=== PATIENT | female | born 1995 | race Caucasian/White ===

== ENCOUNTER 2019-01-23 09:23 | Emergency (ER) | payer OTHER ==
--- NOTE | 2019-01-23 09:50 | ER Document Report ---
ED Medical Screen (RME) - General Chief Complaint: Abdominal Pain Stated Complaint: CHEST PAIN Time Seen by Provider: 01/23/19 09:49 Primary Care Provider: KATE JOLLEY MD [Primary Care Provider] - Follow up as needed Mode of Arrival: Ambulatory Information source: Patient Notes: Patient is an otherwise healthy 23-year-old female presented to the emergency de partment chief complaint of upper abdominal pain with vomiting. Patient reports vomited several times yesterday but vomiting has resolved today. Denies any chills or fever. Denies any dysuria or urinary frequency. Patient has not had any abdominal surgeries. Exam: Tenderness to palpation to epigastric area. I have greeted and performed a rapid initial assessment of this patient. A comprehensive ED assessment and evaluation of the patient, analysis of test results and completion of the medical decision making process will be conducted by additional ED providers. I have specifically instructed the patient or family members with the patient to immediately return to any nursing staff should anything change in the patient's condition or with their chief complaint. This medical record was dictated with voice recognizing software. There may be grammatical, syntax errors that are unintended. TRAVEL OUTSIDE OF THE [place] IN LAST 30 DAYS: No - Related Data Allergies/Adverse Reactions: erythromycin base Allergy (Verified 01/23/19 09:31) sulfamethoxazole [From Septra] Allergy (Verified 01/23/19 09:31) trimethoprim [From Marra] Allergy (Verified 01/23/19 09:31) Past Medical History Past Surgical History: Reports: Hx Section, Hx Cholecystectomy Physical Exam - Vital signs Vitals: Temp Pulse Resp BP Pulse Ox 97.5 F 83 18 144/77 H 97 01/23/19 09:36 01/23/19 09:36 01/23/19 09:36 01/23/19 09:36 01/23/19 09:36 Course - Vital Signs Vital signs: Temp Pulse Resp BP Pulse Ox 97.5 F 83 18 144/77 H 97 01/23/19 09:36 01/23/19 09:36 01/23/19 09:36 01/23/19 09:36 01/23/19 09:36 Doctor's Discharge - Discharge Referrals: KATE JOLLEY MD [Primary Care Provider] - Follow up as needed
[2019-01-23 10:21] LABS: ABSOLUTE EOSINOPHILS # (AUTO) 0.1 10^3/uL (0.0-0.6); ABSOLUTE LYMPHOCYTES (AUTO) 2.2 10^3/uL (0.5-4.7); ABSOLUTE MONOCYTES (AUTO) 0.5 10^3/uL (0.1-1.4); ABSOLUTE NEUT (AUTO) 6.7 10^3/uL (1.7-8.2); BASOPHILS % (AUTO) 0.5 % (0-2); EOSINOPHILS % (AUTO) 0.9 % (0-6); HEMATOCRIT 41.5 % (36.0-47.0); HEMOGLOBIN 14.1 g/dL (12.0-15.5); LYMPHOCYTES % (AUTO) 22.8 % (13-45); MEAN CORPUSCULAR HEMOGLOBIN 29.8 pg (27.0-33.4); MEAN CORPUSCULAR VOLUME 88 fl (80-97); MONOCYTES % (AUTO) 5.2 % (3-13); PLATELET COUNT 359 10^3/uL (150-450); RED BLOOD COUNT 4.73 10^6/uL (3.72-5.28); RED CELL DISTRIBUTION WIDTH 12.9 % (11.5-14.0); SEGMENTED NEUTROPHILS % (AUTO) 70.6 % (42-78); TOTAL CELLS COUNTED % (AUTO) 100 %; WHITE BLOOD COUNT 9.5 10^3/uL (4.0-10.5)
[2019-01-23 10:22] LABS: APPEARANCE,URINE CLEAR; BILIRUBIN,URINE NEGATIVE (NEGATIVE); COLOR,URINE AMBER; GLUCOSE, URINE NEGATIVE (NEGATIVE); KETONES,URINE NEGATIVE (NEGATIVE); LEUKOCYTE ESTERASE,URINE NEGATIVE (NEGATIVE); NITRITE,URINE NEGATIVE (NEGATIVE); PROTEIN,URINE NEGATIVE (NEGATIVE); URINE SPECIFIC GRAVITY 1.032
[2019-01-23] MEDS ORDERED: METOCLOPRAMIDE HCL ORAL SOLN 10 MG/10 ML UDCUP PO ONE (10:48)
[2019-01-23] MEDS ORDERED: MAG HYDROX/AL HYDROX/SIMETH SUSP 30 ML UDCUP PO ONE (10:48)
[2019-01-23] MEDS ORDERED: LIDOCAINE 2% VISCOUS SOLN 20 ML UDCUP PO ONE (10:48)
[2019-01-23 10:50] LABS: ALANINE AMINOTRANSFERASE 98 U/L (9-52); ALBUMIN 4.6 g/dL (3.5-5.0); ALKALINE PHOSPHATASE 92 U/L (38-126); ANION GAP 8 (5-19); ASPARTATE AMINO TRANSFERASE 167 U/L (14-36); BILIRUBIN,DIRECT 0.6 mg/dL (0.0-0.4); BILIRUBIN,TOTAL 0.9 mg/dL (0.2-1.3); BLOOD UREA NITROGEN 10 mg/dL (7-20); CALCIUM 10.1 mg/dL (8.4-10.2); CARBON DIOXIDE 31 mmol/L (22-30); CHLORIDE 101 mmol/L (98-107); GLUCOSE 91 mg/dL (75-110); LIPASE 122.3 U/L (23-300); POTASSIUM 4.2 mmol/L (3.6-5.0); SODIUM 140.4 mmol/L (137-145); TOTAL PROTEIN 7.8 g/dL (6.3-8.2)
--- NOTE | 2019-01-23 10:56 | ER Document Report ---
ED General - General Chief Complaint: Abdominal Pain Stated Complaint: CHEST PAIN Time Seen by Provider: 01/23/19 09:49 Primary Care Provider: KATE JOLLEY MD [PEDIATRICS] - Follow up as needed Mode of Arrival: Ambulatory Information source: Patient, [facility] Records Notes: 23-year-old female with no significant medical history presents with complaint of epigastric abdominal pain, chest pain and vomiting. Patient states that she began having aching chest pain yesterday that was intermittent and associated with one episode of vomiting. She states this self resolved but then returned again this morning. Patient denies any fever, chills, recent illness, cough, shortness of breath, lower abdominal pain, dysuria, hematuria, vaginal discharge. TRAVEL OUTSIDE OF THE [place] IN LAST 30 DAYS: No - HPI Onset: Yesterday Onset/Duration: Sudden, Intermittent, Better Quality of pain: Achy Severity: Mild Associated symptoms: Chest pain, Nausea, Vomiting Exacerbated by: Denies Relieved by: Denies Similar symptoms previously: Yes Recently seen / treated by doctor: No - Related Data Allergies/Adverse Reactions: erythromycin base Allergy (Verified 01/23/19 09:31) sulfamethoxazole [From Septra] Allergy (Verified 01/23/19 09:31) trimethoprim [From Septra] Allergy (Verified 01/23/19 09:31) Past Medical History - General Information source: Patient - Social History Smoking Status: Never Smoker Chew tobacco use (# tins/day): No Frequency of alcohol use: Occasional Drug Abuse: None Lives with: Family Family History: Reviewed & Not Pertinent Patient has suicidal ideation: No Patient has homicidal ideation: No - Medical History Medical History: Negative Renal/ Medical History: Denies: Hx Peritoneal Dialysis Past Surgical History: Reports: Hx Section, Hx Cholecystectomy Review of Systems - Review of Systems Constitutional: denies: Fever, Recent illness EENT: denies: Throat pain Cardiovascular: Chest pain. denies: Palpitations, Heart racing, Dizziness, Lightheaded Respiratory: denies: Cough, Short of breath Gastrointestinal: Abdominal pain, Vomiting Genitourinary: denies: Dysuria, Flank pain Female Genitourinary: denies: Vaginal discharge Musculoskeletal: denies: Back pain Skin: denies: Rash Hematologic/Lymphatic: No symptoms reported Neurological/Psychological: denies: Headaches -: Yes All other systems reviewed and negative Physical Exam - Vital signs Vitals: Temp Pulse Resp BP Pulse Ox 97.5 F 83 18 144/77 H 97 01/23/19 09:36 01/23/19 09:36 01/23/19 09:36 01/23/19 09:36 01/23/19 09:36 - Notes Notes: PHYSICAL EXAMINATION: GENERAL: Well-appearing, well-nourished and in no acute distress. HEAD: Atraumatic, normocephalic. EYES: Pupils equal round and reactive to light, extraocular movements intact, conjunctiva are normal. ENT: Nares patent, oropharynx clear without exudates. Moist mucous membranes. NECK: Normal range of motion, supple without lymphadenopathy LUNGS: Breath sounds clear to auscultation bilaterally and equal. No wheezes rales or rhonchi. HEART: Regular rate and rhythm without murmurs ABDOMEN: Soft, nontender, nondistended abdomen. No guarding, no rebound. No masses appreciated. Female : deferred Musculoskeletal: Normal range of motion, no pitting or edema. No cyanosis. NEUROLOGICAL: Cranial nerves grossly intact. Normal speech, normal gait. Normal sensory, motor exams PSYCH: Normal mood, normal affect. SKIN: Warm, Dry, normal turgor, no rashes or lesions noted. Course - Re-evaluation Re-evalutation: 01/23/19 13:47 Laboratory 01/23/19 01/23/19 01/23/19 10:00 10:00 10:00 WBC 9.5 RBC 4.73 Hgb 14.1 Hct 41.5 MCV 88 MCH 29.8 MCHC 34.0 RDW 12.9 Plt Count 359 Seg Neutrophils % 70.6 Lymphocytes % 22.8 Monocytes % 5.2 Eosinophils % 0.9 Basophils % 0.5 Absolute Neutrophils 6.7 Absolute Lymphocytes 2.2 Absolute Monocytes 0.5 Absolute Eosinophils 0.1 Absolute Basophils 0.0 Sodium 140.4 Potassium 4.2 Chloride 101 Carbon Dioxide 31 H Anion Gap 8 BUN 10 Creatinine 0.74 Est GFR ( Amer) > 60 Est GFR (Non-Af Amer) > 60 Glucose 91 Calcium 10.1 Total Bilirubin 0.9 Direct Bilirubin 0.6 H Neonat Total Bilirubin Not Reportable Neonat Direct Bilirubin Not Reportable Neonat Indirect Bili Not Reportable AST 167 H ALT 98 H Alkaline Phosphatase 92 Total Protein 7.8 Albumin 4.6 Lipase 122.3 Urine Color NIALL Urine Appearance CLEAR Urine pH 6.0 Ur Specific [place] 1.032 Urine Protein NEGATIVE Urine Glucose (UA) NEGATIVE Urine Ketones NEGATIVE Urine Blood NEGATIVE Urine Nitrite NEGATIVE Urine Bilirubin NEGATIVE Urine Urobilinogen 2.0 H Ur Leukocyte Esterase NEGATIVE Urine WBC (Auto) 2 Urine RBC (Auto) 1 Squamous Epi Cells Auto 3 Urine Mucus (Auto) RARE Urine Ascorbic Acid 40 H Urine HCG, Qual NEGATIVE Abdomen Ultrasound 01/23/19 10:49 IMPRESSION: 1. Cholelithiasis. 2. Fatty liver. Chest X-Ray 01/23/19 10:49 IMPRESSION: NO ACUTE RADIOGRAPHIC FINDING IN THE CHEST. Temp Pulse Resp BP Pulse Ox 98.2 F 79 18 126/69 H 99 01/23/19 13:13 01/23/19 13:13 01/23/19 13:13 01/23/19 13:13 01/23/19 13:13 Patient presents clinical history and exam most consistent with symptomatic cholelithiasis. Patient has had progressive worsening epigastric pain worsened by eating but has been able to tolerate oral intake. Vitals at time of arrival and on multiple reassessments remain non-concerning. Laboratories do not demonstrate a significant leukocytosis, LFT derangements, elevated bilirubin, alkaline phosphatase, or an elevated lipase. A right upper quadrant ultrasound does not demonstrate evidence of acute cholecystitis. T Patient is able to tolerate oral intake.At this time will discharge with return precautions and follow-up recommendations. Verbal discharge instructions given a the bedside and opportunity for questions given. Medication warnings reviewed. Patient is in agreement with this plan and has verbalized understanding of return precautions and the need for primary care follow-up in the next 24-72 hours. Patient was provided copies of her ultrasound and lab work that was performed today. Patient was evaluated and treated as appropriate for the patient's presenting symptoms and complaint, with consideration of any critical or life threatening conditions that may be associated with their obtained history and exam as noted above. All results were discussed with patient and her mother who is at the bedside patient provided the opportunity to ask questions, and express concerns. Patient was educated on treatments based on their presumed diagnosis as noted above. At this time we will discharge the patient with return precautions and follow-up recommendations. Verbal discharge instructions given a the bedside. Medication warnings reviewed. Patient is in agreement with this plan and has verbalized understanding of return precautions. After careful consideration I feel that that patient can be safely discharged from the emergency department, they were advised to followup with a primary care physician in 2-3 days. Dictation on this chart was performed using voice recognition software and may result in unintended grammatical, spelling, syntax or errors. - Vital Signs Vital signs: Temp Pulse Resp BP Pulse Ox 98.2 F 79 18 126/69 H 99 01/23/19 13:13 01/23/19 13:13 01/23/19 13:13 01/23/19 13:13 01/23/19 13:13 - Laboratory Result Diagrams: 01/23/19 10:00 01/23/19 10:00 Laboratory results interpreted by me: 01/23/19 01/23/19 10:00 10:00 Carbon Dioxide 31 H Direct Bilirubin 0.6 H AST 167 H ALT 98 H Urine Urobilinogen 2.0 H Urine Ascorbic Acid 40 H - EKG Interpretation by Me EKG shows normal: Sinus rhythm Rate: Normal Rhythm: NSR When compared to previous EKG there are: Previous EKG unavailable Discharge - Discharge Clinical Impression: Epigastric abdominal pain, Reflux esophagitis Gallstone Qualifiers: Cholecystitis presence: without cholecystitis Biliary obstruction: without biliary obstruction Qualified Code(s): K80.20 - Calculus of gallbladder without cholecystitis without obstruction Condition: Good Disposition: HOME, SELF-CARE Instructions: Gallbladder Disease ([facility]), Reflux Disease (GERD) ([facility]) Additional Instructions: Your ultrasound and history is most consistent with symptomatic cholelithiasis. This means that you have stones in your gallbladder that are causing pain when you eat fatty foods. You will likely need to have your gallbladder out in the coming weeks to prevent further pain. The best thing you can do at this time is to avoid fat-containing foods which will trigger your symptoms. Please contact the general surgeon listed in your discharge paperwork at your earliest ability for consultation regarding removal of your gallbladder. Please return to the emergency department if you develop persistent pain in your abdomen that will not go away, persistent vomiting, fever greater than 100.4F, pass out, or have any other symptoms that are concerning to you. Prescriptions: Sucralfate [Carafate 1 gm Tablet] 1 gm PO ACHS #30 tablet Forms: Elevated Blood Pressure Referrals: KATE JOLLEY MD [PEDIATRICS] - Follow up as needed
--- NOTE | 2019-01-23 11:22 | RADIOLOGY REPORT (SQ) ---
EXAM DESCRIPTION: CHEST 2 VIEWS COMPLETED DATE/TIME: 01/23/2019 11:03 am REASON FOR STUDY: chest pain COMPARISON: None. EXAM PARAMETERS: NUMBER OF VIEWS: two views TECHNIQUE: Digital Frontal and Lateral radiographic views of the chest acquired. RADIATION DOSE: NA LIMITATIONS: none FINDINGS: LUNGS AND PLEURA: No opacities, masses or pneumothorax. No pleural effusion. MEDIASTINUM AND HILAR STRUCTURES: No masses or contour abnormalities. HEART AND VASCULAR STRUCTURES: Heart normal size. No evidence for failure. BONES: No acute findings. HARDWARE: None in the chest. OTHER: No other significant finding. IMPRESSION: NO ACUTE RADIOGRAPHIC FINDING IN THE CHEST. TECHNICAL DOCUMENTATION: JOB ID: [id number] [employer]- All Rights Reserved Reading location - IP/workstation name: [email or web address]
--- NOTE | 2019-01-23 12:41 | RADIOLOGY REPORT (SQ) ---
EXAM DESCRIPTION: U/S ABDOMEN LIMITED W/O DOP COMPLETED DATE/TIME: 01/23/2019 12:28 pm REASON FOR STUDY: epigastric pain COMPARISON: None. TECHNIQUE: Dynamic and static grayscale images acquired of the abdomen and recorded on PACS. Additio nal selected color Doppler and spectral images recorded. LIMITATIONS: None. FINDINGS: PANCREAS: No masses. Visualized pancreatic duct normal caliber. LIVER: Normal size Mild fatty infiltration. No focal masses. LIVER VASCULATURE: Normal directional flow of the main portal vein and hepatic veins. GALLBLADDER: Gallstone(s). No pericholecystic fluid. No wall thickening. ULTRASOUND-DETECTED HORTON'S SIGN: Negative. INTRAHEPATIC DUCTS AND COMMON DUCT: CBD and intrahepatic ducts normal caliber. No filling defects. INFERIOR VENA CAVA: Normal flow. AORTA: No aneurysm. RIGHT KIDNEY: Normal size. Normal echogenicity. No solid or suspicious masses. No hydronephros is. No calcifications. PERITONEAL AND RIGHT PLEURAL SPACE: No ascites or effusions. OTHER: No other significant findings. IMPRESSION: 1. Cholelithiasis. 2. Fatty liver. TECHNICAL DOCUMENTATION: JOB ID: [id number]- All Rights Reserved Reading location - IP/workstation name: [email or web address]
[2019-01-23 13:16] VITALS: BP 126/69
--- NOTE | 2019-01-24 00:01 | EKG REPORT ---
SEVERITY:- NORMAL ECG - SINUS RHYTHM : Confirmed by: Anuradha Scott MD 24-Jan-2019 00:00:23
== END 2019-01-23 13:16 | disposition home or self-care (01) ==
LOC: ER 09:23
DX: K21.0 Gastro-esophageal reflux disease with esophagitis (principal); K80.20 Calculus of gallbladder without cholecystitis without obstruction; R10.10 Upper abdominal pain, unspecified; R11.10 Vomiting, unspecified; Z88.3 Allergy status to other anti-infective agents; Z90.49 Acquired absence of other specified parts of digestive tract
CPT/HCPCS: 93005; 99284; 36415; 83690; 85025; 81025; 80053; 81001; 71046; 76705; 93010; J3490